=== PATIENT | female | born 1980 | race Caucasian/White ===

== ENCOUNTER 2017-04-02 17:17 | Emergency (ER) | payer BC, OTHER ==
[2017-04-02 17:30] VITALS: RESP 18; TEMP 98
[2017-04-02 18:33] VITALS: BP 167/88; PULSE 74; O2SAT 95
--- NOTE | 2017-04-02 18:38 | EDPHY ---
H & P Time Seen by Provider: 04/02/17 17:25 HPI/ROS: 36-year-old female presents complaining of right leg cramping intermittently for 1 month duration. No recent travel, no prolonged immobility. Not on control pills. She states she plays golf frequently does not otherwise recall any injuries. 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 She takes 1 baby aspirin every day Review of systems As per HPI General no fever no chills no weakness HEENT no eye pain no eye discharge. No eye redness, no sore throat Respiratory no cough, no shortness of breath Cardiac no chest pain, no peripheral edema GI no abdominal pain, no diarrhea, no constipation, no nausea, no vomiting no flank pain, no hematuria, no dysuria Musculoskeletal positive myalgias, no joint pain Heme no easy bruising, no easy bleeding Endo no polyuria, no polydipsia Skin no rashes, no pruritus Neuro no syncope, no dizziness, no headaches Psych is no suicidal ideation, no homicidal ideation Past Medical/Surgical History: Hypertension Factor 5 deficiency Obesity Social History: Denies alcohol or drug use Smoking Status: Never smoked Physical Exam: 36-year-old female alert and oriented no acute distress nontoxic appearance vital signs stable, afebrile HEENT atraumatic normocephalic, extraocular muscles intact, anicteric Oropharynx negative for erythema negative exudate, tolerating her own secretions Neck supple no meningismus Lungs clear to auscultation bilaterally Heart regular rate and rhythm without murmur rub or gallop Abdomen nondistended normoactive bowel sounds soft nontender Back no CVA tenderness, no step-offs, no spinal tenderness Extremities no cyanosis clubbing or edema Right lower extremity no swelling no ecchymosis, no deformity no tenderness to palpation at present Good distal pulses, normal color normal temperature Neuro alert and oriented, no focal deficits Constitutional: Initial Vital Signs Temperature (C) 36.6 C 04/02/17 17:27 Heart Rate 86 04/02/17 17:27 Respiratory Rate 18 04/02/17 17:27 Blood Pressure 182/110 H 04/02/17 17:27 O2 Sat (%) 97 04/02/17 17:27 O2 Delivery Mode Room Air Allergies/Adverse Reactions: No Known Allergies Allergy (Verified 09/07/12 18:17) Home Medications: Medication Instructions Recorded Miscellaneous Medical Supply [NO 09/07/12 HOME MEDS] Labetalol HCl 04/02/17 Medical Decision Making - Diagnostics Imaging Results: Imaging Impressions Extremity Venous Study 04/02/17 17:54 Impression: No deep venous thrombosis right leg. Findings and recommendations discussed with Emergency Department physician, Jeri Mclaughlin MD at 18:32 hour, 04/02/2017. Final report concurs with initial preliminary interpretation. ED Course/Re-evaluation: Patient seen and evaluated for right lower extremity crampy pain of 1 month duration Ultrasound negative for DVT Physical exam benign Impression Right lower extremity muscle cramp Plan Follow up with primary care physician Return as needed for swelling, pain, fever or chills. Differential Diagnosis: Deep vein thrombosis, muscle strain Departure - Departure Disposition: Home, Routine, Self-Care Clinical Impression: Cramps of right lower extremity Condition: Good Instructions: Leg Cramps (ED) Referrals: Zayda Macias DO [Primary Care Provider] - As per Instructions
== END 2017-04-02 18:46 | disposition home or self-care (01) ==
LOC: CED 17:17
DX: R25.2 Cramp and spasm (principal); I10 Essential (primary) hypertension
CPT/HCPCS: 93971-PO